=== PATIENT | female | born 1995 | race Caucasian/White ===

== ENCOUNTER 2020-10-11 07:05 | Emergency (ER) | payer BC ==
--- NOTE | 2020-10-11 07:23 | EDM.PDOC ---
ED HPI GENERAL MEDICAL PROBLEM - General Chief Complaint: ENT Problem Stated Complaint: NECK PAIN Time Seen by Provider: 10/11/20 07:23 Source of Information: Reports: Patient (`) History Limitations: Reports: No Limitations - History of Present Illness INITIAL COMMENTS - FREE TEXT/NARRATIVE: Patient is a 25-year-old female who presents today for left-sided neck pain. Patient states that she turned her head and felt a pop in her neck. Patient states now she has pain anytime she tries to turn her head in that direction. Patient denies any arm weakness or numbness. Patient denies any vision changes or hearing changes. Patient no neurological plaints. Patient denies any swelling or bruising to the cell the neck. neck Pain Score (Numeric/FACES): 10 - Related Data Allergies Allergy/AdvReac Type Severity Reaction Status Date / Time No Known Allergies Allergy Verified 10/11/20 07:21 Home Meds: Home Meds . [No Known Home Meds] 10/11/20 [History] ED ROS GENERAL - Review of Systems Review Of Systems: Comprehensive ROS is negative, except as noted in HPI. Constitutional: Reports: No Symptoms HEENT: Reports: No Symptoms Respiratory: Reports: No Symptoms Cardiovascular: Reports: No Symptoms Endocrine: Reports: No Symptoms GI/Abdominal: Reports: No Symptoms : Reports: No Symptoms Musculoskeletal: Reports: Neck Pain Skin: Reports: No Symptoms Neurological: Reports: No Symptoms Psychiatric: Reports: No Symptoms Hematologic/Lymphatic: Reports: No Symptoms Immunologic: Reports: No Symptoms ED EXAM, GENERAL - Physical Exam Exam: See Below Exam Limited By: No Limitations General Appearance: Alert, No Apparent Distress Eye Exam: Bilateral Eye: EOMI, PERRL Ears: Normal External Exam Head: Atraumatic Neck: Normal Inspection, Supple, Non-Tender, Limited Range of Motion. No: Lymphadenopathy (L), Tender Lateral, Tender Midline Respiratory/Chest: No Respiratory Distress Cardiovascular: Regular Rate, Rhythm Extremities: Normal Range of Motion Neurological: Alert, Oriented, CN II-XII Intact, Normal Cognition, Normal Gait Course - Vital Signs Last Recorded V/S: Last Vital Signs Temp 96.4 F L 10/11/20 07:18 Pulse 88 10/11/20 07:18 Resp 17 10/11/20 07:18 BP 107/66 10/11/20 07:18 Pulse Ox 99 10/11/20 07:18 - Orders/Labs/Meds Orders: Active Orders 24 hr Category Date Time Status Cyclobenzaprine [Flexeril] Med 10/11/20 09:00 Active 5 mg PO DAILY Medication Orders Cyclobenzaprine HCl (Flexeril) 5 mg PO DAILY TREVOR Last Admin: 10/11/20 07:40 Dose: 5 mg Documented by: KARRIE Labs: Laboratory Tests 10/11/20 Range/Units 07:35 Urine HCG, Qual NEGATIVE (NEGATIVE) Meds: Medications Generic Name Dose Route Start Last Admin Trade Name Freq PRN Reason Stop Dose Admin Cyclobenzaprine HCl 5 mg 10/11/20 09:00 10/11/20 07:40 Flexeril PO 5 mg DAILY TREVOR Administration Discontinued Medications Generic Name Dose Route Start Last Admin Trade Name Freq PRN Reason Stop Dose Admin Hydrocodone Bitart/Acetaminophen 1 tab 10/11/20 08:36 10/11/20 08:42 [place]inklow 325-5 Mg PO 10/11/20 08:37 1 tab ONETIME ONE Administration - Re-Assessments/Exams Free Text/Narrative Re-Assessment/Exam: 10/11/20 09:00 Patient pain slightly improved. Patient x-ray reviewed. Patient be discharged home and can follow-up with primary care as needed. Departure - Departure Time of Disposition: 09:03 Disposition: Home, Self-Care 01 Condition: Good Clinical Impression: Torticollis - Discharge Information *PRESCRIPTION DRUG MONITORING PROGRAM REVIEWED*: Not Applicable *COPY OF PRESCRIPTION DRUG MONITORING REPORT IN PATIENT DIANN: Not Applicable Instructions: Acute Torticollis, Adult Referrals: PCP,None [Primary Care Provider] - Forms: ED Department Discharge Additional Instructions: The following information is given to patients seen in the emergency department who are being discharged to home. This information is to outline your options for follow-up care. We provide all patients seen in our emergency department with a follow-up referral. The need for follow-up, as well as the timing and circumstances, are variable depending upon the specifics of your emergency department visit. If you don't have a primary care physician on staff, we will provide you with a referral. We always advise you to contact your personal physician following an emergency department visit to inform them of the circumstance of the visit and for follow-up with them and/or the need for any referrals to a consulting specialist. The emergency department will also refer you to a specialist when appropriate. This referral assures that you have the opportunity for follow-up care with a specialist. All of these measure are taken in an effort to provide you with optimal care, which includes your follow-up. Under all circumstances we always encourage you to contact your private physician who remains a resource for coordinating your care. When calling for follow-up care, please make the office aware that this follow-up is from your recent emergency room visit. If for any reason you are refused follow-up, please contact the [facility] Emergency Department at and asked to speak to the emergency department charge nurse. Please follow up with your primary care physician. If you do not have a primary care physician, see below: [facility] [address] [place] [id number] [facility] [address] [place] [address] Follow the primary care physician as needed. Please apply heat to the side of the neck where the pain is located. Take Motrin or Tylenol for pain as needed. If you develop any neurological symptoms or increased pain please return to the emergency department. Sepsis Event Note (ED) - Evaluation Sepsis Screening Result: No Definite Risk - Focused Exam Vital Signs: Vital Signs Temp Pulse Resp BP Pulse Ox 10/11/20 07:18 96.4 F L 88 17 107/66 99 - My Orders Last 24 Hours: My Active Orders 10/11/20 09:00 Cyclobenzaprine [Flexeril] 5 mg PO DAILY - Assessment/Plan Last 24 Hours: My Active Orders 10/11/20 09:00 Cyclobenzaprine [Flexeril] 5 mg PO DAILY Plan: Patient is a 25-year-old female presents today for left-sided neck pain. Patient has no tenderness to touch on exam. Patient does have pain with range of motion of the neck. Pain is likely muscle skeletal in nature. Patient be given pain control and will be reassessed.
[2020-10-11] MEDS ORDERED: Acetaminophen/HYDROcodone 325-5 MG Tab PO ONE (08:36)
--- NOTE | 2020-10-11 08:50 | CR ---
INDICATION: Left-sided neck pain. Limited range of motion. TECHNIQUE: Cervical spine 3 view. COMPARISON: None FINDINGS: Bones: Alignment is normal. No fractures or significant bone lesions. Joints: Disc spaces and facets are unremarkable. Soft tissues: Unremarkable. IMPRESSION: Unremarkable cervical spine. Dictated by Dequan Caban MD @ Oct 11 2020 8:45AM Signed by Dr. Dequan Caban @ Oct 11 2020 8:47AM
[2020-10-11] MEDS ORDERED: Cyclobenzaprine 5 MG Tab PO SCH (09:00)
== END 2020-10-11 09:16 | disposition home or self-care (01) ==
LOC: MW.ED 07:05
DX: M43.6 Torticollis (principal)
CPT/HCPCS: 72040; 81025; 99283; A9270

== ENCOUNTER 2022-06-18 02:30 | Emergency (ER) | payer SELFPAY | END 2022-06-18 08:47 | disposition home or self-care (01) | LOC: MW.ED 02:30 | DX: O20.0 Threatened abortion (principal); Z88.8 Allergy status to other drugs, medicaments and biological substances; Z3A.01 Less than 8 weeks gestation of pregnancy | CPT/HCPCS: 36415; 76815; 76815-26; 81001; 81025; 84702; 85025; 86850; 86900; 86901; 87086; 87651-QW; 99284 ==

== ENCOUNTER 2023-02-12 05:22 | Inpatient (IN) | payer BC ==
[2023-02-12] MEDS ORDERED: Sodium Chloride 0.9% 2.5 ML Syringe FLUSH PRN (05:35)
[2023-02-12] MEDS ORDERED: Sodium Chloride 0.9% 20 ML SDV IV PRN (05:35)
[2023-02-12] MEDS ORDERED: Sodium Chloride 0.9% 10 ML Syringe FLUSH PRN (05:35)
[2023-02-12] MEDS ORDERED: Citric Acid/Sodium Citrate Solution 30 ML Cup PO ONE (05:35)
[2023-02-12] MEDS ORDERED: Oxytocin/0.9 % Sodium Chloride 30 UNIT/500 ML BAG IV SCH (05:45)
[2023-02-12] MEDS: Lactated Ringers 1,000 ML IV SCH ×3 (05:56→07:51)
[2023-02-12] MEDS ORDERED: Ondansetron 4 MG/2 ML SDV ONE (07:01)
[2023-02-12] MEDS ORDERED: Ropivacaine 0.5% 5 MG/ML 30 ML SDV ONE (07:01)
[2023-02-12] MEDS ORDERED: Oxytocin 10 Units/1 ML SDV ONE (07:01)
[2023-02-12] MEDS ORDERED: Phenylephrine HCl 0.5 MG/5 ML AMP ONE ×4 (07:01→09:50)
[2023-02-12] MEDS ORDERED: Dexamethasone 4 MG/ML 5 ML MDV ONE (07:01)
[2023-02-12] MEDS ORDERED: Dexmedetomidine 200 MCG/2 ML SDV ONE (07:01)
[2023-02-12] MEDS ORDERED: ceFAZolin 1 GM Vial ONE (07:02)
[2023-02-12] MEDS ORDERED: Water For Injection, Sterile 40 ML ONE (07:02)
[2023-02-12] MEDS ORDERED: Morphine PF 10 MG/10 ML SDV ONE (07:09)
[2023-02-12] MEDS ORDERED: ceFAZolin 2 GM in Sodium Chloride 0.9% 50 ML IV ONE (07:34)
[2023-02-12] MEDS ORDERED: Oxytocin/0.9 % Sodium Chloride 30 UNIT/500 ML BAG ONE (08:11)
[2023-02-12] MEDS ORDERED: ePHEDrine 50 MG/ML SDV ONE (09:11)
[2023-02-12] MEDS ORDERED: diphenhydrAMINE 50 MG/ML SDV IVPUSH PRN ×2 (09:51→10:11)
[2023-02-12] MEDS ORDERED: Lanolin 100% Cream 7 GM Tube TOP PRN (09:51)
[2023-02-12] MEDS ORDERED: Methylergonovine 0.2 MG/1 ML Amp IM PRN (09:51)
[2023-02-12] MEDS ORDERED: Tranexamic Acid 1,000 MG in Sodium Chloride 0.9% 100 ML IV PRN (09:51)
[2023-02-12] MEDS ORDERED: Bisacodyl 10 MG Supp RECTAL PRN (09:51)
[2023-02-12] MEDS ORDERED: Ondansetron 4 MG/2 ML SDV IVPUSH PRN ×2 (09:51→10:11)
[2023-02-12] MEDS ORDERED: Misoprostol 200 MCG Tab RECTAL PRN (09:51)
[2023-02-12] MEDS ORDERED: Acetaminophen/oxyCODONE 325-5 MG Tab PO PRN ×2 (09:51)
[2023-02-12] MEDS ORDERED: Ketorolac 30 MG/ML SDV IVPUSH SCH (10:00)
[2023-02-12] MEDS ORDERED: Lactated Ringers 1,000 ML IV SCH (10:00)
[2023-02-12] MEDS ORDERED: Naloxone 0.4 MG/ML SDV IVPUSH PRN (10:11)
[2023-02-12] MEDS ORDERED: Promethazine 25 MG/ML SDV IM PRN (10:12)
[2023-02-12] MEDS ORDERED: Nalbuphine HCl 10 MG/ 1ML Amp IVPUSH PRN (10:13)
[2023-02-12] MEDS ORDERED: ePHEDrine 50 MG/ML SDV IVPUSH PRN (10:13)
[2023-02-12] MEDS: Ketorolac 30 MG/ML SDV IVPUSH SCH ×2 (16:18→22:12)
[2023-02-12] MEDS: Docusate Sodium 100 MG Cap PO SCH (22:13)
[2023-02-13] MEDS: Ketorolac 30 MG/ML SDV IVPUSH SCH ×3 (04:20→16:47)
[2023-02-13] MEDS: Docusate Sodium 100 MG Cap PO SCH ×2 (08:44→20:36)
[2023-02-13] MEDS ORDERED: traMADol 50 MG Tab PO PRN (12:30)
[2023-02-13] MEDS ORDERED: Sodium Ferric Gluconate Cmplex 125 MG in Sodium Chloride 0.9% 100 ML IV ONE (12:45)
[2023-02-14] MEDS: Acetaminophen/HYDROcodone 325-5 MG Tab PO PRN ×5 (01:28→22:35)
[2023-02-14] MEDS: Docusate Sodium 100 MG Cap PO SCH ×2 (08:41→20:36)
[2023-02-14] MEDS: Ibuprofen 800 MG Tab PO PRN (20:36)
[2023-02-15] MEDS: Acetaminophen/HYDROcodone 325-5 MG Tab PO PRN ×2 (04:30→09:01)
[2023-02-15] MEDS: Ibuprofen 800 MG Tab PO PRN (07:57)
[2023-02-15] MEDS: Docusate Sodium 100 MG Cap PO SCH (09:01)
== END 2023-02-15 12:31 | disposition home or self-care (01) | DRG 540 ==
LOC: MW.OB 05:22
PROVIDERS: ADMIT Obstetrics & Gynecology; ATTEND Obstetrics & Gynecology
PROC: 10D00Z1 Extraction of Products of Conception, Low, Open Approach (ICD-10-PCS; principal; 2023-02-12)
DX: O36.63X0 Maternal care for excessive fetal growth, third trimester, not applicable or unspecified (principal); E66.01 Morbid (severe) obesity due to excess calories; O63.1 Prolonged second stage (of labor); O99.214 Obesity complicating childbirth; Z87.891 Personal history of nicotine dependence; Z3A.39 39 weeks gestation of pregnancy; Z37.0 Single live birth; Z88.0 Allergy status to penicillin; Z88.8 Allergy status to other drugs, medicaments and biological substances
CPT/HCPCS: 01961; 36415; 64488; 80305-QW; 82803; 85027; 86592; 86850; 86900; 86901; A9270-GY; J0690; J1100; J1885; J2274; J2370; J2405; J2590; J2795; J2916; J3490; J7120

== ENCOUNTER 2025-03-05 09:38 | Emergency (ER) | payer BC, MEDICAID ==
[2025-03-05] MEDS: Acetaminophen 325 MG Tab PO ONE (10:27)
== END 2025-03-05 10:46 | disposition home or self-care (01) ==
LOC: MW.ED 09:38
DX: O9A.212 Injury, poisoning and certain other consequences of external causes complicating pregnancy, second trimester (principal); S20.212A Contusion of left front wall of thorax, initial encounter; Z88.0 Allergy status to penicillin; Z88.8 Allergy status to other drugs, medicaments and biological substances; Z79.890 Hormone replacement therapy; Z3A.18 18 weeks gestation of pregnancy; W18.2XXA Fall in (into) shower or empty bathtub, initial encounter
CPT/HCPCS: 71046; 99283; A9270; 99282

== ENCOUNTER 2025-03-12 19:39 | Emergency (ER) | payer MEDICAID | END 2025-03-12 21:15 | disposition home or self-care (01) | LOC: MW.ED 19:39 | DX: J06.9 Acute upper respiratory infection, unspecified (principal); Z87.891 Personal history of nicotine dependence; E66.9 Obesity, unspecified; E03.9 Hypothyroidism, unspecified; Z79.891 Long term (current) use of opiate analgesic; Z88.0 Allergy status to penicillin; Z88.8 Allergy status to other drugs, medicaments and biological substances; Z75.3 Unavailability and inaccessibility of health-care facilities | CPT/HCPCS: 99282; 99283 ==

== ENCOUNTER 2025-07-21 20:35 | Inpatient (IN) | payer MEDICAID ==
[2025-07-22] MEDS: Lactated Ringers 1,000 ML IV SCH (00:01)
[2025-07-22] MEDS ORDERED: Ondansetron 4 MG/2 ML SDV IVPUSH PRN ×4 (00:18→03:47)
[2025-07-22] MEDS ORDERED: Sodium Chloride 0.9% 2.5 ML Syringe FLUSH PRN ×2 (00:18→03:47)
[2025-07-22] MEDS ORDERED: Sodium Chloride 0.9% 10 ML Syringe FLUSH PRN ×2 (00:18→03:47)
[2025-07-22] MEDS ORDERED: Oxytocin/0.9 % Sodium Chloride 30 UNIT/500 ML BAG IV SCH ×2 (00:30→04:00)
[2025-07-22 00:48] LABS: MEAN PLATELET VOLUME 10.8 fL (9.4-12.3); NRBC ABSOLUTE 0.00 K/uL (0.00-0.02); NRBC PERCENT 0.0 /100WBC (0.0-0.2); PLATELET COUNT,PLT 224 K/uL (150-400); RED BLOOD CELL COUNT 4.28 M/uL (4.10-5.30); WHITE BLOOD CELL COUNT,WBC 11.09 K/uL (3.9-11.3)
[2025-07-22] MEDS ORDERED: droPERidol 2.5 MG/ML SDV ONE (01:31)
[2025-07-22] MEDS ORDERED: ceFAZolin 3 GM Vial ONE (01:31)
[2025-07-22] MEDS ORDERED: Ondansetron 4 MG/2 ML SDV ONE (01:31)
[2025-07-22] MEDS ORDERED: Morphine PF 10 MG/10 ML SDV ONE (01:31)
[2025-07-22] MEDS ORDERED: fentaNYL 100 MCG/2 ML SDV ONE (01:31)
[2025-07-22] MEDS ORDERED: Oxytocin 10 Units/1 ML SDV ONE (01:31)
[2025-07-22] MEDS ORDERED: dexmedeTOMIDine HCl 200 MCG/2 ML SDV ONE (01:31)
[2025-07-22] MEDS ORDERED: Dexamethasone 4 MG/ML 5 ML MDV ONE (01:31)
[2025-07-22] MEDS ORDERED: Phenylephrine 1% 10 MG/ML SDV ONE (01:32)
[2025-07-22] MEDS ORDERED: ePHEDrine 50 MG/ML SDV ONE (01:32)
[2025-07-22] MEDS ORDERED: Ropivacaine 0.5% 5 MG/ML 30 ML SDV ONE (01:47)
[2025-07-22] MEDS ORDERED: fentaNYL 100 MCG/2 ML SDV IVPUSH PRN (02:18)
[2025-07-22] MEDS ORDERED: fentaNYL 50 MCG/ML SDV IVPUSH PRN (02:18)
[2025-07-22] MEDS ORDERED: Naloxone 0.4 MG/ML SDV IVPUSH PRN (02:18)
[2025-07-22] MEDS ORDERED: diphenhydrAMINE 50 MG/ML SDV IVPUSH PRN (02:18)
[2025-07-22] MEDS ORDERED: Acetaminophen/oxyCODONE 325-5 MG Tab PO PRN (02:18)
[2025-07-22] MEDS ORDERED: Albuterol 0.083% 2.5 MG/3 ML Neb Soln NEB PRN (02:18)
[2025-07-22] MEDS ORDERED: Propofol 200 MG/20 ML SDV ONE (02:36)
[2025-07-22] MEDS ORDERED: Lanolin 100% Cream 7 GM Tube TOP PRN (03:47)
[2025-07-22] MEDS ORDERED: Carboprost Tromethamine 250 MCG/1 mL Vial IM PRN (03:47)
[2025-07-22 03:50] LABS: PH,UMBILICAL ARTERIAL 7.28 (7.18-7.38); PH,UMBILICAL VENOUS 7.34 (7.25-7.45)
[2025-07-22] MEDS: Nalbuphine 10 MG/1 ML Vial IVPUSH PRN (04:50)
[2025-07-22] MEDS: Ketorolac 30 MG/ML SDV IVPUSH SCH (04:52)
[2025-07-22 05:26] LABS: BASOPHILS ABSOLUTE AUTO 0.06 K/uL (0.00-0.20); BASOPHILS PERCENT AUTO 0.4 % (0.0-1.0); EOSINOPHILS ABSOLUTE AUTO 0.13 K/uL (0.00-0.45); EOSINOPHILS PERCENT AUTO 0.8 % (0.0-6.0); IMMATURE GRAN ABSOLUTE AUTO 0.23 K/uL (0.00-0.05); IMMATURE GRAN PERCENT AUTO 1.5 % (0.0-0.4); LYMPHOCYTES ABSOLUTE AUTO 1.06 K/uL (1.00-4.80); LYMPHOCYTES PERCENT AUTO 6.7 % (24.0-44.0); MEAN PLATELET VOLUME 10.9 fL (9.4-12.3); MONOCYTES ABSOLUTE AUTO 0.56 K/uL (0.00-0.80); MONOCYTES PERCENT AUTO 3.5 % (0.0-8.0); NEUTROPHILS ABSOLUTE AUTO 13.74 K/uL (1.80-7.70); NEUTROPHILS PERCENT AUTO 87.1 % (41.0-71.0); NRBC ABSOLUTE 0.00 K/uL (0.00-0.02); NRBC PERCENT 0.0 /100WBC (0.0-0.2); PLATELET COUNT,PLT 200 K/uL (150-400); RED BLOOD CELL COUNT 4.10 M/uL (4.10-5.30); WHITE BLOOD CELL COUNT,WBC 15.78 K/uL (3.9-11.3)
[2025-07-22] MEDS: Citric Acid/Sodium Citrate Solution 30 ML Cup PO ONE (10:38)
[2025-07-22] MEDS: ceFAZolin 3 GM in Water For Injection, Sterile 30 ML IVPUSH ONE (10:40)
[2025-07-22] MEDS: Measles, Mumps & Rubella Vaccine 0.5 ML SDV SUBCUT ONE (10:41)
[2025-07-22] MEDS: Nalbuphine 10 MG/1 ML Vial IVPUSH ONE (22:03)
[2025-07-24] MEDS: Ketorolac 30 MG/ML SDV IVPUSH SCH (02:24)
== END 2025-07-24 18:15 | disposition home or self-care (01) | DRG 788 ==
LOC: MW.OBCHECK 20:35 → MW.OB 20:47 → MW.OBCHECK 07-22 02:32 → MW.OB 07-22 02:41 → OBSVTOIN 07-22 02:41 → MW.OB 07-22 07:20
PROVIDERS: ADMIT Obstetrics & Gynecology; ATTEND Obstetrics & Gynecology
PROC: 4A1HXCZ Monitoring of Products of Conception, Cardiac Rate, External Approach (ICD-10-PCS; 2025-07-22)
PROC: 10D00Z1 Extraction of Products of Conception, Low, Open Approach (ICD-10-PCS; principal; 2025-07-22 02:30)
DX: O34.211 Maternal care for low transverse scar from previous cesarean delivery (principal); O42.02 Full-term premature rupture of membranes, onset of labor within 24 hours of rupture; Z3A.38 38 weeks gestation of pregnancy; Z37.0 Single live birth; O99.214 Obesity complicating childbirth; O99.52 Diseases of the respiratory system complicating childbirth; O99.284 Endocrine, nutritional and metabolic diseases complicating childbirth; E03.9 Hypothyroidism, unspecified; J45.909 Unspecified asthma, uncomplicated; E66.01 Morbid (severe) obesity due to excess calories
CPT/HCPCS: 36415; 59025; 59514; 82803; 84112; 85025; 85027; 86592; 86850; 86900; 86901; A9270-GY; J0456; J0690; J1100; J1790; J1885; J2274; J2300; J2371; J2405; J2590; J2704; J2765; J2795; J3010; J3490; J7120